=== PATIENT | male | born 1985 | race Caucasian/White ===

== ENCOUNTER 2017-07-17 13:02 | Emergency (ER) | payer MEDICAID ==
[2017-07-17 13:09] VITALS: BP 144/95; PULSE 82; RESP 18; TEMP 97.9; O2SAT 98
[2017-07-17] MEDS ORDERED: LIDOCAINE 2% JELLY 20 ML (UROJECT) ONE (14:11)
--- NOTE | 2017-07-17 14:25 | EDPHY ---
H & P Time Seen by Provider: 07/17/17 13:58 HPI/ROS: CHIEF COMPLAINT: "I think I have anal fissures" HISTORY OF PRESENT ILLNESS: 32-year-old male with no history of rectal foreign body insertion complaining of painful defecation which occurred primarily after he has experienced hard stools and constipation. No melena or hematochezia. No pus in stool. The pain is isolated to the anus. No abdominal pain. No fever or chills. PRIMARY CARE PROVIDER: REVIEW OF SYSTEMS: A ten point review of systems was performed and is negative with the exception of the items mentioned in the HPI PHYSICAL EXAM (Prior to examination, patient consented to physical exam, hands were washed and my usual and customary physical exam procedures followed) 1) GENERAL: Well-developed, well-nourished, alert and oriented. Appears to be in no acute distress. 2) HEAD: Normocephalic 3) HEENT: sclera anicteric 4) LUNGS: Breathing comfortably. [5) rectal: No evidence of perianal or perirectal abscess. There are multiple noninfected fissures visualized. No fistula. Smoking Status: Current every day smoker Constitutional: Initial Vital Signs Temperature (C) 36.6 C 07/17/17 13:06 Heart Rate 82 07/17/17 13:06 Respiratory Rate 18 07/17/17 13:06 Blood Pressure 144/95 H 07/17/17 13:06 O2 Sat (%) 98 07/17/17 13:06 O2 Delivery Mode Room Air Allergies/Adverse Reactions: Penicillins Allergy (Verified 07/17/17 13:05) Home Medications: Medication Instructions Recorded Hydrocortisone [Proctocort] 1 cali RC BID #45 cream..g. 07/17/17 MDM/Departure - MDM ED Course/Re-evaluation: Patient has been given topical viscous lidocaine for pain relief. Doubt perirectal or perianal abscess. No evidence of hemorrhoid. No evidence of infection. We discussed and I recommended increasing fluid and fiber intake, topical anesthetics this, Proctofoam, Sitz baths. If he develops fevers, worsening pain he needs to return to the ER for re-evaluation - Depart Disposition: Home, Routine, Self-Care Clinical Impression: Anal fissure Condition: Good Instructions: Anal Fissure (ED) Additional Instructions: Increase your fluid and fiber intake, take a warm bath whenever possible to soak the area. Look for a product called Nupercainal topical ointment. Prescriptions: Hydrocortisone [Proctocort] 1 cali RC BID #45 cream..g. Referrals: Ajit Burnett MD [Medical Doctor] - 5-7 days, call for appt.
== END 2017-07-17 15:12 | disposition home or self-care (01) ==
DX: K60.2 Anal fissure, unspecified (principal); F17.200 Nicotine dependence, unspecified, uncomplicated